=== PATIENT | female | born 1995 | race Caucasian/White ===

== ENCOUNTER 2020-11-06 14:27 | Emergency (ER) | payer OTHER ==
[~2020-11-06] VITALS: Ht 154.9 cm; Wt 47.7 kg
[2020-11-06 14:54] LABS: BASOPHILS % (AUTO) 0.3 % (0.0-2.0); EOSINOPHILS % (AUTO) 1.6 % (1.0-6.0); HEMATOCRIT 38.8 % (36-46); HEMOGLOBIN 12.8 g/dL (12.0-16.0); LYMPHOCYTES # (AUTO) 1.7 K/uL (1.0-4.8); LYMPHOCYTES % (AUTO) 15.9 % (22.0-44.0); MEAN CORPUSCULAR HEMOGLOBIN 29.5 pg (26.0-34.0); MEAN CORPUSCULAR VOLUME 89 fL (80-100); MONOCYTES # (AUTO) 0.8 K/uL (0.1-1.0); MONOCYTES % (AUTO) 7.3 % (2.0-9.0); NEUTROPHILS % (AUTO) 74.9 % (40.0-70.0); PLATELET COUNT (AUTO) 316 K/uL (150-450); RED BLOOD CELL COUNT(AUTO) 4.35 MIL/uL (4.00-5.20); RED CELL DISTRIBUTION WIDTH 13.8 % (11.5-14.5)
[2020-11-06 15:00] LABS: AMPHET/METH SCREEN,URINE POSITIVE (NEGATIVE); BARBITURATE SCREEN, URINE NEGATIVE (NEGATIVE); BENZODIAZEPINES SCREEN,URINE NEGATIVE (NEGATIVE); CANNABINOID SCREEN,URINE NEGATIVE (NEGATIVE); COCAINE SCREEN,URINE NEGATIVE (NEGATIVE); METHADONE SCREEN, URINE NEGATIVE (NEGATIVE); OPIATE SCREEN,URINE NEGATIVE (NEGATIVE)
[2020-11-06 15:06] VITALS: BP 110/69
[2020-11-06 15:19] LABS: ANION GAP 10 mmol/L (8-16); CARBON DIOXIDE 30 mmol/L (22-29); CHLORIDE 101 mmol/L (98-107); CREATININE 0.59 mg/dL (0.60-1.30); GLOMERULAR FILTR. RATE CALC > 60 mL/min (>60); GLUCOSE,RANDOM 87 mg/dL (70-110); POTASSIUM 4.1 mmol/L (3.5-5.1); SODIUM SERUM 141 mmol/L (136-145); UREA NITROGEN, BLOOD 15 mg/dL (7-18)
[2020-11-06 15:20] LABS: PHENCYCLIDINE SCREEN,URINE NEGATIVE (NEGATIVE)
[2020-11-06 15:30] LABS: ALANINE AMINOTRANSFERASE 20 U/L (12-78); ALBUMIN 3.6 g/dL (3.4-5.0); ALKALINE PHOSPHATASE 66 U/L (46-116); ASPARTATE AMINOTRANSFERASE 12 U/L (15-37); BILIRUBIN,TOTAL 0.2 mg/dL (0.1-1.0); HCG,QUANTITATIVE < 1 mIU/mL (0-6); TOTAL PROTEIN, SERUM 7.6 g/dL (6.4-8.2)
== END 2020-11-06 15:20 | disposition home or self-care (01) ==
LOC: EMS 14:31
DX: R45.851 Suicidal ideations (principal); Z59.0 Homelessness
CPT/HCPCS: 36415; 80053; 80307; 84702; 85025; 99284; G0480

== ENCOUNTER 2020-11-11 13:16 | Inpatient (IN) | payer MEDICAID ==
[~2020-11-11] VITALS: Ht 149.9 cm; Wt 43.2 kg
[2020-11-11] MEDS ORDERED: HALOPERIDOL 5 MG TABLET PO PRN (17:15)
[2020-11-11] MEDS ORDERED: ZOLPIDEM TARTRATE 10 MG TABLET PO PRN (17:15)
[2020-11-11 19:45] VITALS: BP 116/64
[2020-11-12 02:06] VITALS: BP 110/72
[2020-11-12 07:57] LABS: BASOPHILS % (AUTO) 0.5 % (0.0-2.0); EOSINOPHILS % (AUTO) 4.1 % (1.0-6.0); HEMATOCRIT 37.5 % (36-46); HEMOGLOBIN 12.7 g/dL (12.0-16.0); LYMPHOCYTES # (AUTO) 1.5 K/uL (1.0-4.8); LYMPHOCYTES % (AUTO) 21.6 % (22.0-44.0); MEAN CORPUSCULAR HEMOGLOBIN 29.9 pg (26.0-34.0); MEAN CORPUSCULAR HGB CONC 33.9 G/dL (31.0-37.0); MEAN CORPUSCULAR VOLUME 88 fL (80-100); MONOCYTES # (AUTO) 0.7 K/uL (0.1-1.0); MONOCYTES % (AUTO) 10.3 % (2.0-9.0); NEUTROPHILS # (AUTO) 4.4 K/uL (1.8-7.7); NEUTROPHILS % (AUTO) 63.5 % (40.0-70.0); PLATELET COUNT (AUTO) 313 K/uL (150-450); RED BLOOD CELL COUNT(AUTO) 4.26 MIL/uL (4.00-5.20); RED CELL DISTRIBUTION WIDTH 13.7 % (11.5-14.5)
[2020-11-12 08:16] LABS: HEMOGLOBIN A1C 4.8 % (3.8-5.6)
[2020-11-12 08:20] VITALS: BP 120/79
[2020-11-12 08:39] LABS: ALANINE AMINOTRANSFERASE 20 U/L (12-78); ALBUMIN 3.3 g/dL (3.4-5.0); ALKALINE PHOSPHATASE 68 U/L (46-116); ANION GAP 11 mmol/L (8-16); ASPARTATE AMINOTRANSFERASE 9 U/L (15-37); BILIRUBIN,TOTAL 0.2 mg/dL (0.1-1.0); CALCIUM, TOTAL 8.7 mg/dL (8.8-10.5); CARBON DIOXIDE 27 mmol/L (22-29); CHLORIDE 102 mmol/L (98-107); CHOL/HDL RATIO 2.3 (3.9-5.7); CHOLESTEROL 132 mg/dL (131-200); FREE T4 (FREE THYROXINE) 0.81 ng/dL (0.76-1.46); GLOMERULAR FILTR. RATE CALC > 60 mL/min (>60); GLUCOSE,RANDOM 89 mg/dL (70-110); HCG,QUANTITATIVE < 1 mIU/mL (0-6); HDL CHOLESTEROL 58 mg/dL (40-60); LDL CHOL (CALC.) 66 mg/dL (0-130); SODIUM SERUM 140 mmol/L (136-145); THYROID STIMULATING HORMONE 0.43 uIU/mL (0.36-3.74); TRIGLYCERIDES 40 mg/dL (15-150); UREA NITROGEN, BLOOD 15 mg/dL (7-18)
[2020-11-12] MEDS: LORazepam 2 MG TABLET PO PRN (08:53)
[2020-11-12] MEDS: RisperiDONE 2 MG TABLET PO SCH ×2 (11:23→17:20)
[2020-11-12] MEDS: GABAPENTIN 300 MG CAPSULE PO SCH ×2 (11:23→17:20)
[2020-11-12] MEDS ORDERED: PETROLATUM,WHITE 28 GM JELLY TP PRN (15:45)
[2020-11-12] MEDS ORDERED: ALBUTEROL SULFATE HFA 90 MCG/PUFF 8 GM INHALER IH PRN (15:45)
[2020-11-12] MEDS ORDERED: DOCUSATE SODIUM 100 MG CAPSULE PO PRN (15:45)
[2020-11-12] MEDS ORDERED: NICOTINE 14 MG/24 HOUR PATCH TD PRN (15:45)
[2020-11-12] MEDS ORDERED: CloNIDine HCL 0.1 MG TABLET PO PRN (15:45)
[2020-11-12] MEDS ORDERED: IBUPROFEN 400 MG TABLET PO PRN (15:45)
[2020-11-12] MEDS ORDERED: MAGNESIUM HYDROXIDE SUSPENSION 30 ML UDCUP PO PRN (15:45)
[2020-11-12] MEDS ORDERED: MAG HYDROX/AL HYDROX/SIMETH ES 30 ML SUSPENSION UDCUP PO PRN (15:45)
[2020-11-12] MEDS ORDERED: LOPERAMIDE HCL 2 MG CAPSULE PO PRN (15:45)
[2020-11-12] MEDS ORDERED: GuaiFENesin/D-METHORPHAN [SUGAR-FREE] 200-20MG/10 ML SYRUP UDCUP PO PRN (15:45)
[2020-11-12] MEDS ORDERED: ONDANSETRON HCL 4 MG TABLET PO PRN (15:45)
[2020-11-12 16:18] VITALS: BP 100/63
[2020-11-13 00:20] VITALS: BP 102/68
[2020-11-13 08:13] VITALS: BP 124/75
[2020-11-13] MEDS: RisperiDONE 2 MG TABLET PO SCH ×2 (08:29→16:38)
[2020-11-13] MEDS: GABAPENTIN 300 MG CAPSULE PO SCH ×2 (08:29→16:38)
[2020-11-13 16:09] VITALS: BP 109/66
[2020-11-14 01:04] VITALS: BP 102/69
[2020-11-14] MEDS: GABAPENTIN 300 MG CAPSULE PO SCH ×2 (08:10→16:58)
[2020-11-14] MEDS: RisperiDONE 2 MG TABLET PO SCH ×2 (08:10→16:58)
[2020-11-14 08:19] VITALS: BP 100/72
[2020-11-14 16:21] VITALS: BP 110/61
[2020-11-14] MEDS: LORazepam 2 MG TABLET PO PRN (16:58)
[2020-11-14] MEDS: ACETAMINOPHEN 325 MG TABLET PO PRN (20:49)
[2020-11-15 00:08] VITALS: BP 114/67
[2020-11-15] MEDS: GABAPENTIN 300 MG CAPSULE PO SCH ×2 (08:18→16:29)
[2020-11-15] MEDS: RisperiDONE 2 MG TABLET PO SCH ×2 (08:18→16:29)
[2020-11-15 08:23] VITALS: BP 110/64
[2020-11-15 16:05] VITALS: BP 111/64
[2020-11-16 00:52] VITALS: BP 116/67
[2020-11-16] MEDS: ACETAMINOPHEN 325 MG TABLET PO PRN (03:29)
[2020-11-16 08:21] VITALS: BP 116/67
[2020-11-16] MEDS: RisperiDONE 2 MG TABLET PO SCH (08:38)
[2020-11-16] MEDS: GABAPENTIN 300 MG CAPSULE PO SCH (08:38)
[2020-11-16] MEDS ORDERED: RISP2TAB76 PO (10:13)
[2020-11-16] MEDS ORDERED: GABA-1181 PO (10:29)
== END 2020-11-16 12:15 | disposition home or self-care (01) | DRG 751 ==
LOC: B3A 17:18
PROVIDERS: ADMIT Psychiatry & Neurology Psychiatry; ATTEND Psychiatry & Neurology Psychiatry
DX: F32.3 Major depressive disorder, single episode, severe with psychotic features (principal); E44.0 Moderate protein-calorie malnutrition; R45.851 Suicidal ideations; F15.10 Other stimulant abuse, uncomplicated; E83.51 Hypocalcemia; Z59.0 Homelessness; Z68.1 Body mass index [BMI] 19.9 or less, adult
CPT/HCPCS: 83036; 84439; 84443; 87081; J3535